=== PATIENT | female | born 1980 | race Two or more races ===

== ENCOUNTER 2020-02-02 07:54 | Outpatient (CLI) | payer OTHER | END 2020-02-02 08:08 | disposition home or self-care (01) | LOC: TOM 07:54 | PROVIDERS: ATTEND Obstetrics & Gynecology | DX: R19.00 Intra-abdominal and pelvic swelling, mass and lump, unspecified site (principal) ==

== ENCOUNTER 2024-10-26 08:51 | Outpatient (CLI) | payer OTHER | END 2024-10-26 08:57 | disposition home or self-care (01) | LOC: SONOGRAMA 08:51 | PROVIDERS: ATTEND Pathology Anatomic Pathology & Clinical Pathology | DX: D44.0 Neoplasm of uncertain behavior of thyroid gland (principal); E04.2 Nontoxic multinodular goiter ==